=== PATIENT | female | born 1945 | race Caucasian/White ===

== ENCOUNTER 2017-06-21 19:13 | Inpatient (IN) | payer MEDICARE, OTHER ==
[~2017-06-21] VITALS: Ht 180.3 cm; Wt 102.1 kg
[~2017-06-21 19:13] MED LIST: ADVIL200 MG PO; CELEXA10 MG PO; COLACE100 MG PO; COMBIVENT RESPIM4 GM INH; FLEXERIL10 MG PO; GLUCOPHAGE500 MG PO; IPRAT-ALBUT 0.5-3 ML UPD; LASIX20 MG PO; LEVAQUIN500 MG PO; LEVAQUIN750 MG PO; MICRO-K10 MEQ PO; NIASPAN500 MG PO; NORVASC5 MG PO; POTASSIUM CHLOR8 ME1 PO; PREDNISONE20 MG PO; PROTONIX 40 MG40 MG IV; PROTONIX40 MG PO; PROVENTIL/2.5 MG/3 M INH; SINGULAIR10 MG PO; STERAPRED 5MG 125 MG PO; SYMBICORT 16010.2 GM INH; VICODIN 5/500 T1 TAB PO; ZOCOR10 MG PO; ZYLOPRIM300 MG PO
[2017-06-21 20:19] LABS: BASOPHILS 0.5 % (0-2); EOSINOPHILS 1.4 % (0-7); HEMATOCRIT 41.5 % (36.0-48.0); IMMATURE GRANULOCYTES 1.4 % (0-5); LYMPHOCYTES 9.5 % (15-50); MCH 25.4 pg (26.0-34.0); MCHC 31.3 g/dL (31.0-37.0); MCV 81.2 fL (80.0-100.0); MEAN PLATELET VOLUME 9.1 fL (7.4-10.4); MONOCYTES 9.8 % (2-11); NEUTROPHILS 77.4 % (40-80); RBC 5.11 10x6/uL (4.00-5.40); RDW 15.2 % (11.5-14.5); WBC 5.7 10x3/uL (4.8-10.8)
[2017-06-21 20:21] LABS: PLATELET COUNT 172 10x3/uL (130-400)
[2017-06-21 20:35] LABS: ANION GAP 11.1 mmol/L (8-16); BILIRUBIN - TOTAL 0.54 mg/dL (0.2-1.3); CALCIUM 9.5 mg/dL (8.5-10.1); CARBON DIOXIDE 31.3 mmol/L (21.0-32.0); CREATININE - SERUM 1.7 mg/dL (0.6-1.3); POTASSIUM - SERUM 4.4 mmol/L (3.5-5.1)
[2017-06-22] MEDS ORDERED: CLARITIN 10 MG10 MG PO (00:37)
[2017-06-22 02:35] VITALS: BP 154/73
[2017-06-22 03:25] VITALS: BP 151/73; BMI 32.4
[2017-06-22 06:08] VITALS: BP 141/58
[2017-06-22 07:51] VITALS: BP 152/73
[2017-06-22 14:07] VITALS: Ht 180.3 cm; Wt 102.1 kg
[2017-06-22 15:30] VITALS: BP 148/82
[2017-06-22 19:00] VITALS: BP 122/48
[2017-06-23 04:00] VITALS: BP 134/55
[2017-06-23 07:01] LABS: BASOPHILS 0.8 % (0-2); EOSINOPHILS 0.5 % (0-7); HEMATOCRIT 37.3 % (36.0-48.0); HEMOGLOBIN 11.3 g/dL (12-16); IMMATURE GRANULOCYTES 1.1 % (0-5); LYMPHOCYTES 12.5 % (15-50); MCH 24.9 pg (26.0-34.0); MCHC 30.3 g/dL (31.0-37.0); MCV 82.3 fL (80.0-100.0); MEAN PLATELET VOLUME 9.4 fL (7.4-10.4); MONOCYTES 10.9 % (2-11); NEUTROPHILS 74.2 % (40-80); PLATELET COUNT 142 10x3/uL (130-400); RBC 4.53 10x6/uL (4.00-5.40); RDW 15.1 % (11.5-14.5)
[2017-06-23 07:05] LABS: WBC 3.8 10x3/uL (4.8-10.8)
[2017-06-23 07:22] LABS: ANION GAP 10.5 mmol/L (8-16); CALCIUM 8.4 mg/dL (8.5-10.1); CARBON DIOXIDE 29.6 mmol/L (21.0-32.0); CREATININE - SERUM 1.4 mg/dL (0.6-1.3); MAGNESIUM - SERUM 1.9 mg/dL (1.8-2.4); PHOSPHOROUS 3.1 mg/dL (2.5-4.9); POTASSIUM - SERUM 4.1 mmol/L (3.5-5.1)
[2017-06-23 09:50] VITALS: BP 145/63
[2017-06-23 12:15] VITALS: BP 148/66
[2017-06-23 15:19] VITALS: BP 133/53
[2017-06-23 20:40] VITALS: BP 156/52
[2017-06-24 00:15] VITALS: BP 159/57
[2017-06-24 05:09] VITALS: BP 108/63
[2017-06-24 07:41] VITALS: BP 137/68
[2017-06-24 11:37] VITALS: BP 149/72
[2017-06-24 15:49] VITALS: BP 126/55
[2017-06-24 20:58] VITALS: BP 150/60
[2017-06-25 01:12] VITALS: BP 141/50
[2017-06-25 05:58] VITALS: BP 123/48
[2017-06-25 06:47] LABS: BASOPHILS 0 % (0-2); EOSINOPHILS 0 % (0-7); HEMATOCRIT 36.5 % (36.0-48.0); HEMOGLOBIN 11.2 g/dL (12-16); IMMATURE GRANULOCYTES 2.2 % (0-5); LYMPHOCYTES 7.5 % (15-50); MCH 24.9 pg (26.0-34.0); MCHC 30.7 g/dL (31.0-37.0); MCV 81.1 fL (80.0-100.0); MEAN PLATELET VOLUME 9.5 fL (7.4-10.4); MONOCYTES 4.6 % (2-11); NEUTROPHILS 85.7 % (40-80); PLATELET COUNT 151 10x3/uL (130-400); RDW 14.6 % (11.5-14.5); WBC 4.2 10x3/uL (4.8-10.8)
[2017-06-25 06:48] LABS: ANION GAP 8.5 mmol/L (8-16); CREATININE - SERUM 1.3 mg/dL (0.6-1.3); POTASSIUM - SERUM 4.5 mmol/L (3.5-5.1)
[2017-06-25 08:01] VITALS: BP 145/54
[2017-06-25 11:27] VITALS: BP 127/67
[2017-06-25 16:10] VITALS: BP 157/68
[2017-06-25 19:00] VITALS: BP 136/85
[2017-06-26] VITALS: BP 142/57
[2017-06-26 04:00] VITALS: BP 148/87
[2017-06-26 07:43] LABS: HEMATOCRIT 36.8 % (36.0-48.0); HEMOGLOBIN 11.5 g/dL (12-16); LYMPHOCYTES 12.3 % (15-50); MCH 24.7 pg (26.0-34.0); MCHC 31.3 g/dL (31.0-37.0); MCV 79.1 fL (80.0-100.0); MEAN PLATELET VOLUME 8.9 fL (7.4-10.4); NEUTROPHILS 78.9 % (40-80); PLATELET COUNT 147 10x3/uL (130-400); RBC 4.65 10x6/uL (4.00-5.40); RDW 14.1 % (11.5-14.5)
[2017-06-26 07:48] LABS: ANION GAP 8.4 mmol/L (8-16); CALCIUM 9.4 mg/dL (8.5-10.1); CARBON DIOXIDE 30.7 mmol/L (21.0-32.0); CREATININE - SERUM 1.3 mg/dL (0.6-1.3); POTASSIUM - SERUM 4.1 mmol/L (3.5-5.1)
[2017-06-26 09:25] VITALS: BP 145/67
[2017-06-26 11:46] VITALS: BP 146/64
[2017-06-26 16:11] VITALS: BP 164/87
[2017-06-26 20:00] VITALS: BP 147/74
[2017-06-27 04:00] VITALS: BP 130/76
[2017-06-27 06:37] LABS: BASOPHILS 0.3 % (0-2); EOSINOPHILS 0 % (0-7); HEMATOCRIT 38.7 % (36.0-48.0); HEMOGLOBIN 11.7 g/dL (12-16); IMMATURE GRANULOCYTES 5.7 % (0-5); LYMPHOCYTES 9.5 % (15-50); MCH 24.5 pg (26.0-34.0); MCHC 30.2 g/dL (31.0-37.0); MEAN PLATELET VOLUME 9.3 fL (7.4-10.4); MONOCYTES 5.4 % (2-11); NEUTROPHILS 79.1 % (40-80); PLATELET COUNT 150 10x3/uL (130-400); RBC 4.78 10x6/uL (4.00-5.40); RDW 14.5 % (11.5-14.5); WBC 3.9 10x3/uL (4.8-10.8)
[2017-06-27 06:56] LABS: ANION GAP 9.6 mmol/L (8-16); CALCIUM 9.2 mg/dL (8.5-10.1); CARBON DIOXIDE 30.9 mmol/L (21.0-32.0); CREATININE - SERUM 1.2 mg/dL (0.6-1.3); POTASSIUM - SERUM 4.5 mmol/L (3.5-5.1)
[2017-06-27 08:46] VITALS: BP 188/98
[2017-06-27 12:23] VITALS: BP 168/90
[2017-06-27] MEDS ORDERED: DALIRESP500 MCG PO (14:27)
[2017-06-27] MEDS ORDERED: OMNICEF300 MG PO (14:28)
[2017-06-27] MEDS ORDERED: STERAPRED DS 1210 MG PO (14:28)
[2017-06-27 16:00] VITALS: BP 162/89
[2017-06-29 07:28] LABS: IMMUNOGLOBULIN E 16 IU/mL (0-100)
== END 2017-06-27 18:15 | disposition home or self-care (01) | DRG 291 ==
LOC: D.ER 19:13 → D.SDCHOLD 21:27 → D.M2 21:27
PROVIDERS: Emergency Medicine; Internal Medicine Nephrology; Internal Medicine Pulmonary Disease
DX: I13.0 Hypertensive heart and chronic kidney disease with heart failure and stage 1 through stage 4 chronic kidney disease, or unspecified chronic kidney disease (principal); J96.21 Acute and chronic respiratory failure with hypoxia; I50.33 Acute on chronic diastolic (congestive) heart failure; J10.00 Influenza due to other identified influenza virus with unspecified type of pneumonia; N17.9 Acute kidney failure, unspecified; J44.0 Chronic obstructive pulmonary disease with (acute) lower respiratory infection; J44.1 Chronic obstructive pulmonary disease with (acute) exacerbation; E78.5 Hyperlipidemia, unspecified; Z99.81 Dependence on supplemental oxygen; I08.1 Rheumatic disorders of both mitral and tricuspid valves; E11.21 Type 2 diabetes mellitus with diabetic nephropathy; E11.22 Type 2 diabetes mellitus with diabetic chronic kidney disease; N18.9 Chronic kidney disease, unspecified; K21.9 Gastro-esophageal reflux disease without esophagitis; K57.90 Diverticulosis of intestine, part unspecified, without perforation or abscess without bleeding; Z87.891 Personal history of nicotine dependence; Z77.090 Contact with and (suspected) exposure to asbestos; I27.20 Pulmonary hypertension, unspecified

== ENCOUNTER → 2017-08-07 09:42 | Outpatient (CLI) | payer MEDICARE, OTHER ==
[2017-06-22 14:07] VITALS: BMI 32.3
[~2017-08-07 09:42] MED LIST changes: +CLARITIN 10 MG10 MG PO; +DALIRESP500 MCG PO; +OMNICEF300 MG PO; +STERAPRED DS 1210 MG PO
== END | disposition home or self-care (01) ==
LOC: D.RT 09:42
DX: J44.9 Chronic obstructive pulmonary disease, unspecified (principal)

== ENCOUNTER → 2017-08-27 20:00 | Outpatient (CLI) | payer MEDICARE, OTHER ==
[2017-06-22 14:07] VITALS: BMI 32.3
== END | disposition home or self-care (01) ==
LOC: D.MAMMO 10:30
DX: Z12.31 Encounter for screening mammogram for malignant neoplasm of breast (principal)

== ENCOUNTER → 2017-10-02 05:40 | Outpatient (CLI) | payer MEDICARE, OTHER ==
[2017-06-22 14:07] VITALS: BMI 32.3
== END | disposition home or self-care (01) ==
LOC: D.MAMMO 05:40
DX: R92.8 Other abnormal and inconclusive findings on diagnostic imaging of breast (principal)

== ENCOUNTER 2017-11-02 09:22 | Outpatient (CLI) | payer MEDICARE, OTHER ==
[2017-06-22 14:07] VITALS: BMI 32.3
== END 2017-11-02 09:23 | disposition home or self-care (01) ==
LOC: D.MAMMO 09:22
DX: R92.8 Other abnormal and inconclusive findings on diagnostic imaging of breast (principal)

== ENCOUNTER → 2019-02-13 11:22 | Outpatient (CLI) | payer MEDICARE, OTHER ==
[2017-06-22 14:07] VITALS: BMI 32.3
--- NOTE | 2019-02-17 11:10 | ST ---
PATIENT:MAHSA SHABAZZ MEDICAL RECORD: [id number] SEX: F LOCATION:[facility] ORDER #: ADMISSION DATE: 02/13/19 AGE OF PATIENT: 73 REFERRING PHYSICIAN: INTERPRETING PHYSICIAN: TEDDY CORDERO MD DATE OF SERVICE: 02/13/2019 PROCEDURE: Nuclear stress test. INDICATIONS: Angina, abnormal ECG, hypertension, diabetes. She was exercised on standard Lexiscan protocol with 33 mCi of sestamibi injected at peak stress, 10 mCi used previously for rest images. FINDINGS: Gated SPECT reveals a preserved ejection fraction at 68%, decreased thickening and brightening throughout the anterior segments. SPECT imaging: Cardiolite was used as myocardial perfusion agent. There is a fixed perfusion defect throughout the anterior segments. This includes the basal, mid, apical anterior segments. There is no evidence of reversibility, in fact the defect improves with stress. The remaining segments are with homogeneous uptake at rest and stress. OVERALL IMPRESSION: This is a minimally abnormal nuclear stress test showing only a fixed perfusion defect anteriorly that improves with stress. No evidence of reversible ischemia. Gated SPECT reveals preserved ejection fraction greater than 50%. Standard medical management and treatment of the coronary artery disease and cardiac risk factors. TRANSINT:[id number] Voice Confirmation ID: [id number] DOCUMENT ID: [id number] TEDDY CORDERO MD at 1110 CC: [id number] DICTATION DATE: 02/14/19 1247 ASSISTANT PRODUCTION EDITOR: 02/15/19 0730 DEP CLI 02/13/19 [id number] [place] [address]
== END | disposition home or self-care (01) ==
LOC: D.HCCARDIO 11:22
PROVIDERS: ATTEND Internal Medicine Interventional Cardiology
DX: I20.9 Angina pectoris, unspecified (principal)

== ENCOUNTER → 2019-05-08 10:26 | Outpatient (CLI) | payer MEDICARE, OTHER ==
[2017-06-22 14:07] VITALS: BMI 32.3
[~2019-05-08 10:26] MED LIST changes: +MUCINEX DM ER1 EAC1 PO; +MULTI-DAY VITAM1 TAB PO; +ZANAFLEX4 MG PO; +ZYRTEC10 MG PO
== END | disposition home or self-care (01) ==
LOC: D.RT 10:26
PROVIDERS: ATTEND Internal Medicine Pulmonary Disease
DX: J44.9 Chronic obstructive pulmonary disease, unspecified (principal)

== ENCOUNTER 2019-05-11 15:08 | Inpatient (IN) | payer MEDICARE, OTHER ==
[~2019-05-11] VITALS: Ht 180.3 cm; Wt 98.0 kg
[~2019-05-11 15:08] MED LIST changes: -MUCINEX DM ER1 EAC1 PO; -MULTI-DAY VITAM1 TAB PO; -ZANAFLEX4 MG PO; -ZYRTEC10 MG PO
[2019-05-11] MEDS ORDERED: CLARITIN 10 MG10 MG PO (15:16)
[2019-05-11 15:56] LABS: BASOPHILS 0.4 % (0-2); EOSINOPHILS 0.2 % (0-7); HEMATOCRIT 32.7 % (36.0-48.0); HEMOGLOBIN 9.4 g/dL (12-16); IMMATURE GRANULOCYTES 1.3 % (0-5); LYMPHOCYTES 6.7 % (15-50); MCHC 28.7 g/dL (31.0-37.0); MCV 73.2 fL (80.0-100.0); MEAN PLATELET VOLUME 9.3 fL (7.4-10.4); MONOCYTES 10.7 % (2-11); NEUTROPHILS 80.7 % (40-80); RBC 4.47 10x6/uL (4.00-5.40); RDW 16.1 % (11.5-14.5); WBC 4.7 10x3/uL (4.8-10.8)
[2019-05-11 16:00] LABS: APTT 34.3 SECONDS (22.8-39.4); INR 1.12 (0.85-1.17); PROTIME 13.9 SECONDS (11.6-15.0)
[2019-05-11 16:02] LABS: PLATELET COUNT 214 10x3/uL (130-400)
[2019-05-11 16:03] LABS: CALC OSMOLALITY 279 mosm/kg (275-300); CARBON DIOXIDE 29.3 mmol/L (21.0-32.0); CHLORIDE - SERUM 104 mmol/L (98-107); CREATININE - SERUM 1.2 mg/dL (0.6-1.3); GLUCOSE 104 mg/dL (74-106); POTASSIUM - SERUM 4.1 mmol/L (3.5-5.1); SODIUM 141 mmol/L (136-145); UREA NITROGEN 10 mg/dL (7-18); eGFR NON AFRICAN AMERICAN 46 mL/min (90-120)
[2019-05-11 16:20] LABS: ALBUMIN 3.5 g/dL (3.4-5.0); ALKALINE PHOSPHATASE 103 U/L (46-116); ALT (SGPT) 17 U/L (10-68); BILIRUBIN - TOTAL 0.64 mg/dL (0.2-1.3); CKMB 0.4 U/L (0.0-3.6); CREATINE KINASE 66 UL (21-215); PRO BNP 523 pg/mL (0-450); PROTEIN - SERUM 6.9 g/dL (6.4-8.2)
[2019-05-11 16:21] LABS: TROPONIN-I < 0.017 ng/mL (0.000-0.060)
[2019-05-11 16:51] LABS: % SATURATION 5 % (15-55); IRON 16 ug/dl (35-150); TOTAL IRON BIND CAPACITY 288 ug/dl (260-445); UNSAT IRON BIND CAPACITY 272 ug/dl (150-375)
[2019-05-11 17:27] VITALS: BP 158/59
--- NOTE | 2019-05-11 18:12 | MORECARE ---
CASE MANAGEMENT DISCHARGE SUMMARY PATIENT: MAHSA SHABAZZ UNIT: [id number] ADM DATE: 05/11/19 AGE: 73 : 43 SEX: F ROOM/BED: D.2205 AUTHOR: TAL BROWN PHYSICIAN: REFERRING PHYSICIAN: LAURE ADAMS MD DATE OF SERVICE: 05/11/19 Discharge Plan Patient Name: MAHSA SHABAZZ [facility] [facility] 1945 Planned Disposition: Home Anticipated Discharge Date: 05/13/19 Discharge Date: Expected LOS: 2 Initial Reviewer: [email or web address] Initial Review Date: 05/11/2019 Generated: 05/11/19 7:12 pm Patient Name: MAHSA SHABAZZ Page [id number] at 1812 All edits/amendments must be made on the electronic document DICTATION DATE: 05/11/191810 MANAGER EMS: FRANNIE 05/11/191810 RPT#: [id number] DC DATE: STATUS: ADM IN [facility] [address] [place] [address] END OF REPORT
--- NOTE | 2019-05-11 18:19 | MORECARE ---
CASE MANAGEMENT DISCHARGE SUMMARY PATIENT: MAHSA SHABAZZ UNIT: [id number] ADM DATE: 05/11/19 AGE: 73 : 43 SEX: F ROOM/BED: D.2205 AUTHOR: STEPHANIE,DOC PHYSICIAN: REFERRING PHYSICIAN: LAURE ADAMS MD DATE OF SERVICE: 05/11/19 Discharge Plan Patient Name: MAHSA SHABAZZ Facility: [facility]:[place] : 1945 Planned Disposition: Home Anticipated Discharge Date: 05/13/19 Discharge Date: Expected LOS: 2 Initial Reviewer: [email or web address] Initial Review Date: 05/11/2019 Generated: 05/11/19 7:19 pm DCP- Discharge Planning Updated by [email or web address]: Christi Pedro on 05/11/19 5:[address] DC PLAN: Return home independently. Son lives with her. ANTICIPATED DC NEEDS: Denied known dc needs in the ER. CM met with patient and her sister in law to complete initial dc planning assessment. CM educated patient on the CM role and verbal consent given by patient to complete assessment. CM verified patient's address, phone number, and emergency contact phone numbers. Patient lives at home independently. She reports her son lives with her. He is currently in the hospital across [facility] having an amputation. At discharge patient plans to return home and feels this is a safe discharge. CM discussed availability of home health, rehab services, and medical equipment. Patient denied known discharge needs at this time. Transportation provider at discharge will be her sister in law, Merary Cole @ [phone] . CM will continue to follow and will assist as needed with dc plans/needs. Christi Pedro RN, [facility] [place] [facility] DCPIA - Discharge Planning Initial Assessment Updated by [email or web address]: Christi Pedro on 05/11/19 6:12 pm * Is the patient Alert and Oriented? Yes * How many steps to enter\exit or inside your home? Ramp * PCP Dr. Sun * Pharmacy [facility] [address]. * Preadmission Environment Home with Family * ADLs Independent * Equipment Bedside Commode Cane Nebulizer Oxygen Rolling Walker Wheelchair * Other Equipment [email or web address] is her oxygen company. She bought her nebulizer from [employer]. * List name and contact numbers for known caregivers / representatives who currently or will assist patient after discharge: Merary Cole - sister in law - [phone] * Verbal permission to speak to the caregivers and representatives has been obtained from the patient. Yes * Community resources currently utilized None * Additional services required to return to the preadmission environment? No * Can the patient safely return to the preadmission environment? Yes * Has this patient been hospitalized within the prior 30 days at any hospital? No Last DP export: 05/11/19 5:12 pm Patient Name: MAHSA SHABAZZ Page [id number] at 1819 All edits/amendments must be made on the electronic document DICTATION DATE: 05/11/191818 CIRCUIT CLERK: FRANNIE 05/11/191818 RPT#: [id number] DC DATE: STATUS: ADM IN [facility] [address] [place] [address] END OF REPORT
[2019-05-11] MEDS ORDERED: MUCINEX DM ER1 EAC1 PO (18:48)
[2019-05-11] MEDS ORDERED: MULTI-DAY VITAM1 TAB PO (18:48)
[2019-05-11] MEDS ORDERED: ZYRTEC10 MG PO (18:49)
[2019-05-11] MEDS ORDERED: ZANAFLEX4 MG PO (18:50)
[2019-05-11] MEDS ORDERED: PROTONIX40 MG PO (18:51)
--- NOTE | 2019-05-11 18:53 | NUR ---
1805 PT ARRIVED TO UNIT PER W/C, SL TO RAC, PT ALERT AND O, O2 PER NC AT 3L, WILL MONITOR VITALS AND RESP STATUS
--- NOTE | 2019-05-11 19:42 | NUR ---
RESTING IN BED, ISOLATION FOR BED BUGS, SL TO RAC, NO REDDNESS NOTED, O2 PER NC AT 3L, SLIGHT WHEEZE TO LEFT LOWER LOBE, DEMINISHED LUNG SOUNDS THRU OUT, NO EDEMA, PT STATES THAT SHE IS CONTINENT AND WALKS TO THE BATHROOM WITHOUT ASSIST, MED LIST REVIEWED, PROVIDED SANDWICH, DIET SODA, COFFEE
--- NOTE | 2019-05-11 19:45 | NUR ---
AWAKE,ALERT.ORIENTED X 3. RESP EVEN AND UNALBORED. NO DISTRESS NOTED. RESP UNALBORED. O2 @ 3L PER NC ON. DENIES DISCOMFORT AT PRESENT. CL ILN REACH
[2019-05-11 20:51] VITALS: BP 167/70; BMI 30.2
[2019-05-12] VITALS: BP 137/43
[2019-05-12 00:21] VITALS: BP 130/60
[2019-05-12 05:08] VITALS: BP 132/74
[2019-05-12 05:23] LABS: BASOPHILS 0.3 % (0-2); EOSINOPHILS 0 % (0-7); HEMATOCRIT 33.4 % (36.0-48.0); HEMOGLOBIN 9.5 g/dL (12-16); IMMATURE GRANULOCYTES 4.3 % (0-5); LYMPHOCYTES 6.2 % (15-50); MCHC 28.4 g/dL (31.0-37.0); MCV 73.7 fL (80.0-100.0); MEAN PLATELET VOLUME 9.4 fL (7.4-10.4); MONOCYTES 1.9 % (2-11); NEUTROPHILS 87.3 % (40-80); PLATELET COUNT 224 10x3/uL (130-400); RBC 4.53 10x6/uL (4.00-5.40); RDW 15.8 % (11.5-14.5)
[2019-05-12 05:33] LABS: WBC 3.2 10x3/uL (4.8-10.8)
[2019-05-12 05:37] LABS: CALCIUM 9.1 mg/dL (8.5-10.1); CARBON DIOXIDE 29.3 mmol/L (21.0-32.0); CREATININE - SERUM 1.2 mg/dL (0.6-1.3); MAGNESIUM - SERUM 2.2 mg/dL (1.8-2.4); POTASSIUM - SERUM 4.3 mmol/L (3.5-5.1)
--- NOTE | 2019-05-12 07:46 | NUR ---
PT IV CAME OUT THIS MORNING BEFORE SHIFT, PT WAS STUCK BY CARTON GLUING MACHINE OPERATOR AND UNSUCCESSFUL IV ACCESS, TRIED TO GAIN IV ACCESS IN PT LEFT HABD ABD IV BLEW WILL PLACE FOR VASCULAR ACCESS NURSE TO GAIN IV ACCESS.
[2019-05-12 08:23] VITALS: BP 121/48
--- NOTE | 2019-05-12 09:27 | NUR ---
I have reviewed this patient and I concur with the Shift Assessment completed by the Licensed Practical Nurse today this shift.
[2019-05-12 12:29] VITALS: BP 135/65
[2019-05-12 12:58] VITALS: Ht 180.3 cm; Wt 98.0 kg
[2019-05-12 17:08] VITALS: BP 143/63
--- NOTE | 2019-05-12 19:35 | NUR ---
PATIENT RESTING IN BED WITH NO S/S OF DISTRESS. BROUGHT PATIENT WATER PER HER REQUEST. PATIENT DENIES OTHER NEEDS AT THIS TIME. BED IN LOWEST POSITION AND CALL LIGHT WITHIN REACH. ENCOURAGED THE PATIENT TO CALL IF SHE HAS NEEDS. WILL CONTINUE TO MONITOR.
--- NOTE | 2019-05-12 22:59 | NUR ---
PATIENT RESTING IN BED WITH NO S/S OF DISTRESS. ADMINISTERED MEDS PER ORDERS. PATIENT C/O PAIN TO THE IV IN HER LEFT WRIST. REMOVED IV WITH TIP INTACT. PATIENT DENIES OTHER NEEDS AT THIS TIME. BED IN LOWEST POSITION AND CALL LIGHT WITHIN REACH. ENCOURAGED THE PATIENT TO CALL IF SHE HAS NEEDS. WILL CONTINUE TO MONITOR.
[2019-05-13] VITALS: BP 119/44
[2019-05-13 04:00] VITALS: BP 135/56
[2019-05-13 06:49] LABS: BASOPHILS 0.2 % (0-2); EOSINOPHILS 0 % (0-7); HEMATOCRIT 34.2 % (36.0-48.0); HEMOGLOBIN 9.6 g/dL (12-16); IMMATURE GRANULOCYTES 1.9 % (0-5); LYMPHOCYTES 4.7 % (15-50); MCH 20.7 pg (26.0-34.0); MCHC 28.1 g/dL (31.0-37.0); MCV 73.9 fL (80.0-100.0); MEAN PLATELET VOLUME 9.4 fL (7.4-10.4); MONOCYTES 4.5 % (2-11); NEUTROPHILS 88.7 % (40-80); PLATELET COUNT 227 10x3/uL (130-400); RBC 4.63 10x6/uL (4.00-5.40); RDW 15.8 % (11.5-14.5)
[2019-05-13 06:56] LABS: WBC 4.6 10x3/uL (4.8-10.8)
[2019-05-13 07:06] LABS: ANION GAP 11.7 mmol/L (8-16); CALCIUM 9.3 mg/dL (8.5-10.1); CARBON DIOXIDE 30.7 mmol/L (21.0-32.0); CREATININE - SERUM 1.4 mg/dL (0.6-1.3); MAGNESIUM - SERUM 2.3 mg/dL (1.8-2.4); PHOSPHOROUS 3.4 mg/dL (2.5-4.9); POTASSIUM - SERUM 4.4 mmol/L (3.5-5.1)
--- NOTE | 2019-05-13 07:29 | NUR ---
PT LYING IN BED, NO S/SX OF DISTRESS, PT AWARE THAT STOOL AND URINE SAMPLE NEEDED AND MATERIALS TO COLLECT SPECIMEN ARE IN ROOM. NO NEEDS VOICED BY PT THIS MORNING, CL IN REACH BED IN LOWEST POSITION, ASSUME PT CARE
[2019-05-13 08:30] VITALS: BP 153/65
[2019-05-13 10:29] LABS: APPEARANCE CLEAR (CLEAR); BILIRUBIN NEGATIVE (NEGATIVE); COLOR YELLOW (YELLOW); GLUCOSE NEGATIVE (NEGATIVE); KETONE NEGATIVE (NEGATIVE); NITRITE NEGATIVE (NEGATIVE); PROTEIN NEGATIVE (NEGATIVE); SPECIFIC GRAVITY 1.015 (1.005-1.020); UROBILINOGEN NORMAL (NORMAL)
--- NOTE | 2019-05-13 12:23 | NUR ---
I have reviewed this patient and I concur with the Shift Assessment completed by the Licensed Practical Nurse today this shift.
[2019-05-13 12:48] VITALS: BP 142/50
--- NOTE | 2019-05-13 13:38 | NUR ---
PT SITTING UP IN BED HAVING LUNCH, STARTED IV ABX, NO S/SX OF DISTRESS, NO NEEDS VOICED, CONTINUE WITH PLAN OF CARE
[2019-05-13 16:43] VITALS: BP 157/81
[2019-05-13 20:00] VITALS: BP 144/66
[2019-05-14] VITALS: BP 147/56
[2019-05-14 04:00] VITALS: BP 137/54
[2019-05-14 05:59] LABS: BASOPHILS 0.2 % (0-2); EOSINOPHILS 0 % (0-7); HEMOGLOBIN 10.1 g/dL (12-16); IMMATURE GRANULOCYTES 2.1 % (0-5); MCH 20.7 pg (26.0-34.0); MCHC 28.1 g/dL (31.0-37.0); MCV 73.8 fL (80.0-100.0); MEAN PLATELET VOLUME 9.5 fL (7.4-10.4); MONOCYTES 4.4 % (2-11); NEUTROPHILS 87.3 % (40-80); PLATELET COUNT 263 10x3/uL (130-400); RBC 4.88 10x6/uL (4.00-5.40); RDW 15.7 % (11.5-14.5); WBC 5.2 10x3/uL (4.8-10.8)
[2019-05-14 06:07] LABS: ANION GAP 8.5 mmol/L (8-16); CALCIUM 9.2 mg/dL (8.5-10.1); CARBON DIOXIDE 35.4 mmol/L (21.0-32.0); CREATININE - SERUM 1.4 mg/dL (0.6-1.3); POTASSIUM - SERUM 3.9 mmol/L (3.5-5.1)
--- NOTE | 2019-05-14 07:52 | NUR ---
PT LYING IN BED ON LEFT SIDE, NO S/SX OF DISTRESS, EVEN RISE AND FALL OF CHEST NO NEEDS VOICED, ASSUME PT CARE
[2019-05-14 08:39] VITALS: BP 139/58
[2019-05-14 12:46] VITALS: BP 124/79
[2019-05-14 16:45] VITALS: BP 144/57
--- NOTE | 2019-05-14 19:27 | NUR ---
REPORT RECEIVED, WILL CONTINUE POC. PATIENT IS AAOX4, UP AD JOHANNE. PATIENT IS ON THE PHONE AT THIS TIME. NO S/S OF DISTRESS OBSERVED, RR EVEN AND UNLABORED ON 2L O2 VIA NC. PATIENT DENIES NEEDS AT THIS TIME. CL IN REACH, BED LOCKED AND LOWERED. WILL CTM.
[2019-05-14 20:00] VITALS: BP 140/62
--- NOTE | 2019-05-15 05:54 | NUR ---
I have reviewed this patient and I concur with the Shift Assessment completed by the Licensed Practical Nurse today this shift.
--- NOTE | 2019-05-15 06:35 | NUR ---
FSBS 148, NO INSULIN REQUIRED
[2019-05-15 07:08] LABS: BASOPHILS 0.2 % (0-2); EOSINOPHILS 0 % (0-7); HEMATOCRIT 35.1 % (36.0-48.0); IMMATURE GRANULOCYTES 4.3 % (0-5); MCH 20.6 pg (26.0-34.0); MCHC 28.5 g/dL (31.0-37.0); MCV 72.4 fL (80.0-100.0); MEAN PLATELET VOLUME 9.1 fL (7.4-10.4); NEUTROPHILS 77.5 % (40-80); PLATELET COUNT 234 10x3/uL (130-400); RBC 4.85 10x6/uL (4.00-5.40); RDW 15.5 % (11.5-14.5); WBC 5.5 10x3/uL (4.8-10.8)
[2019-05-15 07:19] LABS: ANION GAP 9.7 mmol/L (8-16); CALCIUM 9.3 mg/dL (8.5-10.1); CARBON DIOXIDE 32.1 mmol/L (21.0-32.0); CREATININE - SERUM 1.3 mg/dL (0.6-1.3); POTASSIUM - SERUM 3.8 mmol/L (3.5-5.1)
[2019-05-15 08:45] VITALS: BP 161/70
[2019-05-15] MEDS ORDERED: OMNICEF300 MG PO (09:49)
[2019-05-15] MEDS ORDERED: VIBRAMYCIN 100100 MG PO (09:49)
[2019-05-15] MEDS ORDERED: IPRAT-ALBUT 0.5-3 ML UPD (09:50)
[2019-05-15] MEDS ORDERED: FLUTICASONE PRO16 GM NASAL (09:52)
[2019-05-15] MEDS ORDERED: FLORAJEN3 CAPS460 MG PO (09:52)
[2019-05-15] MEDS ORDERED: PREDNISONE10 MG PO (09:52)
[2019-05-15] MEDS ORDERED: TRELEGY ELLIPT1 EACH INH (09:53)
[2019-05-15] MEDS ORDERED: ALBUTEROL SULF8.5 GM INH (09:55)
[2019-05-15] MEDS ORDERED: Tessalon Perle PO (09:56)
[2019-05-15] MEDS ORDERED: Bumex PO (09:56)
--- NOTE | 2019-05-15 10:06 | NUR ---
PT SITTING UP IN BED STATED SHE IS GOING HOME TODAY BEFORE WEATHER GETS TOO BAD, NO NEEDS VOICED, NO S/SX OF DISTRESS, CONTINUE WITH PLAN OF CARE UNTIL DC
--- NOTE | 2019-05-15 10:45 | NUR ---
I have reviewed this patient and I concur with the Shift Assessment completed by the Licensed Practical Nurse today this shift.
--- NOTE | 2019-05-15 15:25 | MORECARE ---
CASE MANAGEMENT DISCHARGE SUMMARY PATIENT: MAHSA SHABAZZ UNIT: [id number] ADM DATE: 05/11/19 AGE: 73 : 43 SEX: F ROOM/BED: D.2205 AUTHOR: TAL BROWN PHYSICIAN: REFERRING PHYSICIAN: LAURE ADAMS MD DATE OF SERVICE: 05/15/19 Discharge Plan Patient Name: MAHSA SHABAZZ Facility: [facility]:[place] : 1945 Planned Disposition: Home Anticipated Discharge Date: 05/13/19 Discharge Date: Expected LOS: 2 Initial Reviewer: [email or web address] Initial Review Date: 05/11/2019 Generated: 05/15/19 4:25 pm Comments DCP- Discharge Planning Updated by [email or web address]: Dora Crook on 05/15/19 2:[address] Patient to be discharged today, IMM served and explained. No changes to DC plan. DCP- Discharge Planning Updated by [email or web address]: Christi Pedro on 05/11/19 5:[address] DC PLAN: Return home independently. Son lives with her. ANTICIPATED DC NEEDS: Denied known dc needs in the ER. CM met with patient and her sister in law to complete initial dc planning assessment. CM educated patient on the CM role and verbal consent given by patient to complete assessment. CM verified patient's address, phone number, and emergency contact phone numbers. Patient lives at home independently. She reports her son lives with her. He is currently in the hospital across [facility] having an amputation. At discharge patient plans to return home and feels this is a safe discharge. CM discussed availability of home health, rehab services, and medical equipment. Patient denied known discharge needs at this time. Transportation provider at discharge will be her sister in law, Merary Cole @ [phone] . CM will continue to follow and will assist as needed with dc plans/needs. Christi Pedro RN, [facility] DCPIA - Discharge Planning Initial Assessment Updated by [id number]: Christi Pedro on 05/11/19 6:12 pm * Is the patient Alert and Oriented? Yes * How many steps to enter\exit or inside your home? Ramp * PCP Dr. Sun * Pharmacy [facility] [address]. * Preadmission Environment Home with Family * ADLs Independent * Equipment Bedside Commode Cane Nebulizer Oxygen Rolling Walker Wheelchair * Other Equipment [employer] is her oxygen company. She bought her nebulizer from [employer]. * List name and contact numbers for known caregivers / representatives who currently or will assist patient after discharge: Merary Cole - sister in law - [phone] * Verbal permission to speak to the caregivers and representatives has been obtained from the patient. Yes * Community resources currently utilized None * Additional services required to return to the preadmission environment? No * Can the patient safely return to the preadmission environment? Yes * Has this patient been hospitalized within the prior 30 days at any hospital? No Coverage Notice Reviewer: [email or web address] Danielle Crook Notice Issued Date-Time: 05/15/2019 15:20 Notice Type: IM Discharge Notice Notice Delivered To: Patient Relationship to Patient: Sap Data Architect Name: Delivery Method: HAND - Hand Delivered Radha Days: Prior Verbal Notification: Recipient Understood Notice: Yes Recipient Signature: Yes Med Rec Note Co-signed by Attending: Coverage Notice Comment: Imm served and explained, signed copy placed in chart Last DP export: 05/11/19 5:19 pm Patient Name: MAHSA SHABAZZ Page [phone] at 1525 All edits/amendments must be made on the electronic document DICTATION DATE: 05/15/19 1525 CRANBERRY BOG SUPERVISOR: FRANNIE 05/15/19 1525 RPT#: [id number] DC DATE: STATUS: ADM IN [facility] [address] [place] [address] END OF REPORT
--- NOTE | 2019-05-16 07:45 | MORECARE ---
CASE MANAGEMENT DISCHARGE SUMMARY PATIENT: MAHSA SHABAZZ UNIT: [id number] ADM DATE: 05/11/19 AGE: 73 : 43 SEX: F ROOM/BED: D.2205 AUTHOR: TAL BROWN PHYSICIAN: REFERRING PHYSICIAN: LAURE ADAMS MD DATE OF SERVICE: 05/16/19 Discharge Plan Patient Name: MAHSA SHABAZZ Facility: [facility]:[place] : 1945 Planned Disposition: Home Anticipated Discharge Date: 05/13/19 Discharge Date: 05/15/2019 Expected LOS: 2 Initial Reviewer: [email or web address] Initial Review Date: 05/11/2019 Generated: 05/16/19 8:45 am Comments DCP- Discharge Planning Updated by [email or web address]: Dora Crook on 05/15/19 2:[address] Patient to be discharged today, IMM served and explained. No changes to DC plan. DCP- Discharge Planning Updated by [email or web address]: Christi Pedro on 05/11/19 5:[address] DC PLAN: Return home independently. Son lives with her. ANTICIPATED DC NEEDS: Denied known dc needs in the ER. CM met with patient and her sister in law to complete initial dc planning assessment. CM educated patient on the CM role and verbal consent given by patient to complete assessment. CM verified patient's address, phone number, and emergency contact phone numbers. Patient lives at home independently. She reports her son lives with her. He is currently in the hospital across [facility] having an amputation. At discharge patient plans to return home and feels this is a safe discharge. CM discussed availability of home health, rehab services, and medical equipment. Patient denied known discharge needs at this time. Transportation provider at discharge will be her sister in law, Merary Cole @ [phone] . CM will continue to follow and will assist as needed with dc plans/needs. Christi Pedro RN, [facility] DCPIA - Discharge Planning Initial Assessment Updated by [email or web address]: Christi Pedro on 05/11/19 6:12 pm * Is the patient Alert and Oriented? Yes * How many steps to enter\exit or inside your home? Ramp * PCP Dr. Sun * Pharmacy [facility] [address]. * Preadmission Environment Home with Family * ADLs Independent * Equipment Bedside Commode Cane Nebulizer Oxygen Rolling Walker Wheelchair * Other Equipment [employer] is her oxygen company. She bought her nebulizer from [employer]. * List name and contact numbers for known caregivers / representatives who currently or will assist patient after discharge: Merary Cole - sister in law - [phone] * Verbal permission to speak to the caregivers and representatives has been obtained from the patient. Yes * Community resources currently utilized None * Additional services required to return to the preadmission environment? No * Can the patient safely return to the preadmission environment? Yes * Has this patient been hospitalized within the prior 30 days at any hospital? No Coverage Notice Reviewer: [email or web address] Danielle Crook Notice Issued Date-Time: 05/15/2019 15:20 Notice Type: IM Discharge Notice Notice Delivered To: Patient Relationship to Patient: Stamp Press Operator Name: Delivery Method: HAND - Hand Delivered Radha Days: Prior Verbal Notification: Recipient Understood Notice: Yes Recipient Signature: Yes Med Rec Note Co-signed by Attending: Coverage Notice Comment: Imm served and explained, signed copy placed in chart Last DP export: 05/15/19 2:25 pm Patient Name: MAHSA SHABAZZ Page [id number] at 0745 All edits/amendments must be made on the electronic document DICTATION DATE: 05/16/19744 FURNACE PROCESS SUPERVISOR: FRANNIE 05/16/19744 RPT#: [id number] DC DATE:05/15/19 STATUS: DIS IN [facility] [address] [place] [address] END OF REPORT
== END 2019-05-15 17:02 | disposition home or self-care (01) | DRG 291 ==
LOC: D.ER 15:08 → D.MS 16:54 → D.ER 17:37 → D.MS 05-15 17:02
PROVIDERS: Family Medicine; ADMIT Family Medicine; ATTEND Family Medicine
DX: I13.0 Hypertensive heart and chronic kidney disease with heart failure and stage 1 through stage 4 chronic kidney disease, or unspecified chronic kidney disease (principal); J96.21 Acute and chronic respiratory failure with hypoxia; J18.9 Pneumonia, unspecified organism; I50.33 Acute on chronic diastolic (congestive) heart failure; J44.1 Chronic obstructive pulmonary disease with (acute) exacerbation; J44.0 Chronic obstructive pulmonary disease with (acute) lower respiratory infection; Z99.81 Dependence on supplemental oxygen; E11.65 Type 2 diabetes mellitus with hyperglycemia; M19.90 Unspecified osteoarthritis, unspecified site; M81.0 Age-related osteoporosis without current pathological fracture; M41.9 Scoliosis, unspecified; D50.9 Iron deficiency anemia, unspecified; E78.5 Hyperlipidemia, unspecified; I27.20 Pulmonary hypertension, unspecified; K21.9 Gastro-esophageal reflux disease without esophagitis; E11.22 Type 2 diabetes mellitus with diabetic chronic kidney disease; N18.9 Chronic kidney disease, unspecified